=== PATIENT | male | born 1945 | race Caucasian/White ===

== ENCOUNTER 2022-11-26 09:32 | Observation (INO) ==
[2022-11-26 10:31] LABS: Basophils # 0.1 10*3/uL (0.0-0.2); Basophils % 1.2 % (0.0-0.8); Eosinophils # 0.5 10*3/uL (0.0-0.87); Eosinophils % 5.9 % (0.00-10.9); Hematocrit 47.4 VOL% (42.0-52.0); Immature Granulocytes % 0.4 %; Immature Granulocytes Absolute 0.03 #; Lymphocytes # 1.8 10*3/uL (1.4-4.0); Lymphocytes % 21.7 % (21.2-54.2); Mean Corpuscular HGB Conc 33.8 GM/DL (32-36); Mean Corpuscular Volume 86.8 FL (87-102); Monocytes # 0.8 10*3/uL (0.11-0.8); Monocytes % 9.7 % (1.7-12.7); Neutrophils % 61.1 % (38.7-73.9); Platelet Count 261 T/CUMM (130-400); Red Blood Count 5.46 MC/CUMM (3.8-5.5); Red Cell Distribution Width 13.4 % (9.3-17.3); White Blood Count 8.15 T/CUMM (4-12)
[2022-11-26 10:56] LABS: Albumin 4.1 G/DL (3.4-5.0); Bilirubin,Total 0.7 MG/DL (0.20-1.00); Calcium 8.7 MG/DL (8.5-10.1); Osmolality,Calculated 282.3 MOS/KG (273-304); Potassium 3.9 MMOL/L (3.5-5.1)
[2022-11-26] MEDS ORDERED: ONDANSETRON 4 MG/2 ML VIAL IV PRN (11:21)
[2022-11-26] MEDS ORDERED: ACETAMINOPHEN 325 MG TABLET PO PRN (11:21)
[2022-11-26] MEDS: ASPIRIN EC 81 MG TABLET PO SCH ×2 (16:15→21:29)
[2022-11-26] MEDS ORDERED: amLODIPine 5 MG TABLET PO SCH (21:00)
[2022-11-26] MEDS: SIMVASTATIN 40 MG TABLET PO SCH (21:29)
[2022-11-26] MEDS: DOCUSATE SODIUM 100 MG CAPSULE PO SCH (21:29)
[2022-11-27 06:42] LABS: Basophils # 0.1 10*3/uL (0.0-0.2); Basophils % 1.3 % (0.0-0.8); Eosinophils # 0.7 10*3/uL (0.0-0.87); Eosinophils % 8.1 % (0.00-10.9); Hematocrit 46.7 VOL% (42.0-52.0); Hemoglobin 15.4 GM/DL (14.0-18.0); Immature Granulocytes % 0.2 %; Immature Granulocytes Absolute 0.02 #; Lymphocytes # 2.8 10*3/uL (1.4-4.0); Lymphocytes % 32.7 % (21.2-54.2); Mean Corpuscular Volume 87.9 FL (87-102); Mean Platelet Volume 9.9 FL (9.6-12.0); Monocytes # 0.9 10*3/uL (0.11-0.8); Monocytes % 10.5 % (1.7-12.7); Neutrophils % 47.2 % (38.7-73.9); Platelet Count 254 T/CUMM (130-400); Red Blood Count 5.31 MC/CUMM (3.8-5.5); Red Cell Distribution Width 13.4 % (9.3-17.3)
[2022-11-27 07:05] LABS: Calcium 9.2 MG/DL (8.5-10.1); Osmolality,Calculated 282.3 MOS/KG (273-304); Potassium 3.5 MMOL/L (3.5-5.1)
[2022-11-27 08:17] LABS: Risk Ratio 3.7
[2022-11-27] MEDS: ASPIRIN EC 81 MG TABLET PO SCH ×2 (09:30→09:52)
[2022-11-27] MEDS: LOSARTAN 50 MG TABLET PO SCH (09:30)
[2022-11-27] MEDS: METOPROLOL SUCCINATE XL 100 MG TABLET PO SCH (09:31)
[2022-11-27] MEDS: PANTOPRAZOLE 40 MG TABLET PO SCH (09:31)
[2022-11-27] MEDS: CLOPIDOGREL 75 MG TABLET PO SCH (09:32)
[2022-11-27] MEDS: DOCUSATE SODIUM 100 MG CAPSULE PO SCH ×2 (09:32→20:47)
[2022-11-27] MEDS: SIMVASTATIN 40 MG TABLET PO SCH (20:47)
[2022-11-27] MEDS ORDERED: amLODIPine 10 MG TABLET PO SCH (21:00)
[2022-11-28 07:19] LABS: Basophils # 0.1 10*3/uL (0.0-0.2); Basophils % 1.2 % (0.0-0.8); Eosinophils # 0.6 10*3/uL (0.0-0.87); Eosinophils % 6.8 % (0.00-10.9); Hematocrit 48.3 VOL% (42.0-52.0); Hemoglobin 15.9 GM/DL (14.0-18.0); Immature Granulocytes % 0.2 %; Immature Granulocytes Absolute 0.02 #; Lymphocytes # 2.9 10*3/uL (1.4-4.0); Lymphocytes % 32.5 % (21.2-54.2); Mean Corpuscular HGB Conc 32.9 GM/DL (32-36); Mean Platelet Volume 9.1 FL (9.6-12.0); Monocytes % 10.7 % (1.7-12.7); Neutrophils % 48.6 % (38.7-73.9); Platelet Count 266 T/CUMM (130-400); Red Blood Count 5.49 MC/CUMM (3.8-5.5); Red Cell Distribution Width 13.5 % (9.3-17.3); White Blood Count 8.84 T/CUMM (4-12)
[2022-11-28 08:00] LABS: Albumin 3.6 G/DL (3.4-5.0); Bilirubin,Total 0.9 MG/DL (0.20-1.00); Calcium 9.4 MG/DL (8.5-10.1); Osmolality,Calculated 278.4 MOS/KG (273-304); Potassium 3.5 MMOL/L (3.5-5.1)
[2022-11-28 09:04] VITALS: BP 117/78
[2022-11-28] MEDS: DOCUSATE SODIUM 100 MG CAPSULE PO SCH (09:16)
[2022-11-28] MEDS: METOPROLOL SUCCINATE XL 100 MG TABLET PO SCH (09:16)
[2022-11-28] MEDS: ASPIRIN EC 81 MG TABLET PO SCH (09:16)
[2022-11-28] MEDS: LOSARTAN 50 MG TABLET PO SCH (09:16)
[2022-11-28] MEDS: PANTOPRAZOLE 40 MG TABLET PO SCH (09:16)
[2022-11-28] MEDS: CLOPIDOGREL 75 MG TABLET PO SCH (09:16)
== END 2022-11-28 11:30 | disposition home or self-care (01) ==
LOC: N.EDINP 09:32 → N.ED 09:32 → N.2W 16:29
PROVIDERS: ADMIT Family Medicine; ATTEND Family Medicine